=== PATIENT | female | born 1965 | race Caucasian/White ===

== ENCOUNTER 2020-11-03 18:23 | Emergency (ER) | payer MEDICAID ==
[~2020-11-03] VITALS: Ht 152.4 cm; Wt 53.8 kg
[2020-11-03] MEDS ORDERED: ketorolac tromethamine 15mg/ml inj. IM ONE (19:20)
[2020-11-03] MEDS ORDERED: orphenadrine citrate 60mg/2ml inj. IM ONE (19:20)
[2020-11-03] MEDS ORDERED: METH-360 PO (19:43)
[2020-11-03] MEDS ORDERED: IBUP-1985 PO (19:43)
[2020-11-03 20:12] VITALS: BP 136/78
== END 2020-11-03 19:55 | disposition home or self-care (01) ==
LOC: ER 18:24
DX: M54.5 Low back pain (principal); Z85.41 Personal history of malignant neoplasm of cervix uteri; Z72.89 Other problems related to lifestyle; Z88.1 Allergy status to other antibiotic agents; Z79.899 Other long term (current) drug therapy
CPT/HCPCS: 96372; 99284; J1885; J2360